=== PATIENT | female | born 1950 | race Caucasian/White ===

== ENCOUNTER 2024-02-19 09:00 | Outpatient (RCR) | payer OTHER, SELFPAY | END 2024-02-25 09:06 | disposition home or self-care (01) | LOC: PURB 09:00 | PROVIDERS: ATTENDING PHYSICIAN Internal Medicine Critical Care Medicine; FAMILY PHYSICIAN Student in an Organized Health Care Education/Training Program | DX: J44.9 Chronic obstructive pulmonary disease, unspecified (principal) | CPT/HCPCS: G0237 ==

== ENCOUNTER 2024-03-23 09:30 | Outpatient (RCR) | payer OTHER, SELFPAY | END 2024-03-26 08:59 | disposition home or self-care (01) | LOC: PURB 09:30 | PROVIDERS: ATTENDING PHYSICIAN Internal Medicine Critical Care Medicine; FAMILY PHYSICIAN Student in an Organized Health Care Education/Training Program | DX: J44.9 Chronic obstructive pulmonary disease, unspecified (principal) | CPT/HCPCS: 94625 ==

== ENCOUNTER 2024-04-20 09:30 | Outpatient (RCR) | payer OTHER, SELFPAY | END 2024-04-26 10:01 | disposition home or self-care (01) | LOC: PURB 09:30 | PROVIDERS: ATTENDING PHYSICIAN Internal Medicine Critical Care Medicine; FAMILY PHYSICIAN Student in an Organized Health Care Education/Training Program | DX: J44.9 Chronic obstructive pulmonary disease, unspecified (principal) | CPT/HCPCS: 94625 ==

== ENCOUNTER 2024-05-27 09:30 | Outpatient (RCR) | payer OTHER, SELFPAY | END 2024-05-27 23:59 | disposition home or self-care (01) | LOC: PURB 09:30 | PROVIDERS: ATTENDING PHYSICIAN Internal Medicine Critical Care Medicine; FAMILY PHYSICIAN Student in an Organized Health Care Education/Training Program | DX: J44.9 Chronic obstructive pulmonary disease, unspecified (principal) | CPT/HCPCS: 94625 ==

== ENCOUNTER 2024-06-17 09:30 | Outpatient (RCR) | payer OTHER, SELFPAY | END 2024-06-17 23:59 | disposition home or self-care (01) | LOC: PURB 09:30 | PROVIDERS: ATTENDING PHYSICIAN Internal Medicine Critical Care Medicine; FAMILY PHYSICIAN Student in an Organized Health Care Education/Training Program | DX: J44.9 Chronic obstructive pulmonary disease, unspecified (principal) | CPT/HCPCS: 94625 ==

== ENCOUNTER 2024-07-06 09:30 | Outpatient (RCR) | payer OTHER, SELFPAY | END 2024-07-26 11:49 | disposition home or self-care (01) | LOC: PURB 09:30 | PROVIDERS: ATTENDING PHYSICIAN Internal Medicine Critical Care Medicine; FAMILY PHYSICIAN Student in an Organized Health Care Education/Training Program | DX: J44.9 Chronic obstructive pulmonary disease, unspecified (principal) | CPT/HCPCS: 94625 ==

== ENCOUNTER 2024-09-29 12:28 | Outpatient (RCR) | payer OTHER, SELFPAY | END 2024-09-29 23:59 | disposition home or self-care (01) | LOC: RPT 12:28 | PROVIDERS: ATTENDING PHYSICIAN Otolaryngology | DX: R42 Dizziness and giddiness (principal); Z73.6 Limitation of activities due to disability; W10.9XXD Fall (on) (from) unspecified stairs and steps, subsequent encounter; R29.6 Repeated falls | CPT/HCPCS: 97110; 97163 ==

== ENCOUNTER → 2024-12-14 12:46 | Outpatient (REF) | payer OTHER, SELFPAY | LOC: HWRAD 12:46 | PROVIDERS: ATTENDING PHYSICIAN Nurse Practitioner Family; FAMILY PHYSICIAN Internal Medicine | DX: R91.1 Solitary pulmonary nodule (principal) | CPT/HCPCS: 71250 ==

== ENCOUNTER → 2025-05-31 13:10 | Outpatient (REF) | payer OTHER, SELFPAY | LOC: HWRAD 13:10 | PROVIDERS: ATTENDING PHYSICIAN Internal Medicine Critical Care Medicine; FAMILY PHYSICIAN Internal Medicine | DX: R94.2 Abnormal results of pulmonary function studies (principal); R93.89 Abnormal findings on diagnostic imaging of other specified body structures | CPT/HCPCS: 71250 ==